=== PATIENT | male | born 1985 | race African-American/Black ===

== ENCOUNTER 2017-07-11 13:07 | Emergency (ER) | payer OTHER ==
[~2017-07-11] VITALS: Ht 188 cm; Wt 124.7 kg
[~2017-07-11 13:07] MED LIST: ADVIL200 M2 PO; APAP500; BENADRYL25 MG PO; COMPAZINE10 MG PO; CYCLOGYL5 M1 OP; IBUPROFEN 600600 M1 PO; IBUPROFEN 800800 MG PO; NOHOMEMEDICATIONS; NORCO 5-325 TA1 EACH PO; PENICILLIN VK500 M1 PO; PRED FORTE 1% EY5 M1 OP; TOBRADEX ST EYE5 ML; TRAMADOL 50 MG50 MG PO; ULTRAM 50MG TAB50 MG PO; ZOFRAN ODT4 MG PO; ZPAK PO
[2017-07-11 13:10] VITALS: BP 134/90
[2017-07-11] MEDS ORDERED: TRAMADOL 50 MG50 MG PO (14:36)
[2017-07-11] MEDS ORDERED: NAPROSYN500 MG PO (14:36)
== END 2017-07-11 14:45 | disposition home or self-care (01) ==
LOC: ER 13:07
DX: S76.812A Strain of other specified muscles, fascia and tendons at thigh level, left thigh, initial encounter (principal); Z91.041 Radiographic dye allergy status; X58.XXXA Exposure to other specified factors, initial encounter; Y93.61 Activity, american tackle football; Y92.89 Other specified places as the place of occurrence of the external cause; Y99.8 Other external cause status

== ENCOUNTER 2018-05-31 12:04 | Emergency (ER) | payer OTHER ==
[~2018-05-31] VITALS: Ht 188 cm; Wt 117.9 kg
[~2018-05-31 12:04] MED LIST changes: +NAPROSYN500 MG PO
[2018-05-31] MEDS ORDERED: NAPROSYN500 MG PO (13:41)
[2018-05-31 14:05] VITALS: BP 127/78
== END 2018-05-31 13:42 | disposition home or self-care (01) ==
LOC: ER 12:04
DX: S62.604A Fracture of unspecified phalanx of right ring finger, initial encounter for closed fracture (principal); M20.011 Mallet finger of right finger(s); Z91.041 Radiographic dye allergy status; W22.8XXA Striking against or struck by other objects, initial encounter; Y93.61 Activity, american tackle football; Y92.89 Other specified places as the place of occurrence of the external cause; Y99.8 Other external cause status